=== PATIENT | male | born 1935 | race Caucasian/White ===

== ENCOUNTER 2023-11-19 13:41 | Inpatient (IN) | payer OTHER ==
[~2023-11-19 13:41] MED LIST: Iopamidol 300 61% 100 ML VIAL FS ONE
[2023-11-19] MEDS ORDERED: Ipratropium/Albuterol 3 ML NEB ONE (14:23)
[2023-11-19] MEDS ORDERED: methylPREDNISolone Sod Succ/PF 125 MG/2 ML VIAL ONE (14:29)
[2023-11-19 15:04] LABS: Hematocrit 37.8 % (38.8-50.0); MDiff Complete? YES; Mean Corpuscular HGB CONC 34.4 g/dL (32.0-36.0); Mean Corpuscular Hemoglobin 31.8 pg (27.0-33.0); Mean Corpuscular Volume 92.4 fl (81.2-95.1); Mean Platelet Volume 9.4 fl (7.4-10.4); Platelet Count 245 10x3/uL (150-450); RBC Distribution Width 12.9 % (11.5-14.5); Red Blood Cell (RBC) Count 4.09 10x6/uL (4.32-5.72)
[2023-11-19 15:11] LABS: ALT (SGPT) 8 U/L (8-55); AST (SGOT) 11 U/L (5-34); Albumin 3.3 g/dL (3.4-4.8); Alkaline Phosphatase 134 U/L (40-110); Anion Gap 16 mmol/L (10-20); BUN (Urea Nitrogen) 23 mg/dL (8.4-25.7); Bilirubin, Total 0.7 mg/dL (0.2-1.2); Calc. Creatinine Clearance 0 mL/min (70-130); Calcium 8.2 mg/dL (7.8-10.44); Carbon Dioxide 21 mmol/L (23-31); Chloride 100 mmol/L (98-107); Estimated GFR 33; Globulin 3.4 g/dL (2.4-3.5); Glucose 132 mg/dL (83-110); Potassium 4.3 mmol/L (3.5-5.1); Protein, Total 6.7 g/dL (5.8-8.1); Sodium 133 mmol/L (136-145)
[2023-11-19 15:15] LABS: Troponin I 0.093 ng/mL (< 0.028)
[2023-11-19 15:17] LABS: Analyzer IN Cardio CS ER; Base Excess -0.1 mEq/L (-2 - +2); Calcium, Ionized (venous) 1.11 mmol/L (1.16-1.32); Chloride (VBG) 98 mmol/L (98-106); Hematocrit-VBG 41 % (42.0-52.0); Hemoglobin (Hb) 13.9 g/dL (12.6-17.4); Potassium (VBG) 4.17 mmol/L (3.70-5.30); Puncture Site Other Site; RapidComm Collect By CBN; Sodium 134 mmol/L (133-146); pH (venous) 7.422 (7.32-7.43)
[2023-11-19 15:28] LABS: Neutrophil 88 % (42-75)
[2023-11-19 15:30] LABS: Band 4 % (5-11); Lymphocytes 3 % (21-51); Monocytes 5 % (0-10); Platelet Adequacy Comment Appears Adequate; RBC Morph Comment Within Normal Limits
[2023-11-19] MEDS ORDERED: Morphine 4 MG/ML VIAL ONE (18:13)
[2023-11-19] MEDS ORDERED: Cefepime 1 GM VIAL ONE (18:13)
[2023-11-19] MEDS ORDERED: Vancomycin 1 GM VIAL ONE (18:48)
[2023-11-19] MEDS ORDERED: metroNIDAZOLE 500 MG (100 mL) BAG ONE (19:58)
[2023-11-19] MEDS ORDERED: HYDROcodone/Acetaminophen 5/325 mg Tablet PO PRN (20:04)
[2023-11-19] MEDS ORDERED: Calcium Carbonate 500 MG ChewTAB PO PRN (20:04)
[2023-11-19] MEDS ORDERED: Guaifenesin DM 100-10/5 ML UDCUP PO PRN (20:04)
[2023-11-19] MEDS ORDERED: Ondansetron PF 4 MG/2 ML Vial IVP PRN (20:04)
[2023-11-19] MEDS ORDERED: Senokot S 8.6-50 MG TAB PO PRN (20:04)
[2023-11-19] MEDS ORDERED: Ipratropium/Albuterol 3 ML NEB NEB PRN (20:11)
[2023-11-19 21:09] LABS: INR-International Normal Ratio 1.2; Prothrombin Time 13.1 sec (9.5-12.1)
[2023-11-19 21:16] LABS: Troponin I 0.076 ng/mL (< 0.028)
[2023-11-20] MEDS ORDERED: Enoxaparin 80 MG (0.8 mL) SYRINGE ONE (00:24)
[2023-11-20] MEDS ORDERED: Atorvastatin Calcium 10 MG TAB ONE (00:27)
[2023-11-20] MEDS: Atorvastatin Calcium 10 MG TAB PO SCH (00:32)
[2023-11-20] MEDS: Sodium Chloride 0.9% 1,000 ML IV SCH (00:32)
[2023-11-20] MEDS: Enoxaparin 80 MG (0.8 mL) SYRINGE SC SCH ×2 (00:32→20:36)
[2023-11-20] MEDS: Terazosin HCl 5 MG CAP PO SCH (00:32)
[2023-11-20] MEDS: Morphine 2 MG/ML VIAL SLOW IVP PRN (00:35)
[2023-11-20] MEDS ORDERED: Morphine 2 MG/ML VIAL ONE ×2 (00:35→06:34)
[2023-11-20 04:34] LABS: #Monocytes 0.8 10x3/uL (0.0-1.1); #Neutrophils 22.5 10x3/uL (1.5-8.4); %Basophils 0.1 % (0.0-2.0); %Lymphocytes 3.2 % (18.0-47.0); %Monocytes 3.2 % (0.0-10.0); %Neutrophils 92.6 % (40.0-75.0); Hematocrit 31.9 % (38.8-50.0); Hemoglobin 10.6 g/dL (13.5-17.5); Mean Corpuscular HGB CONC 33.2 g/dL (32.0-36.0); Mean Corpuscular Hemoglobin 31.6 pg (27.0-33.0); Mean Corpuscular Volume 95.2 fl (81.2-95.1); Mean Platelet Volume 9.7 fl (7.4-10.4); Platelet Count 217 10x3/uL (150-450); RBC Distribution Width 12.8 % (11.5-14.5); Red Blood Cell (RBC) Count 3.35 10x6/uL (4.32-5.72); White Blood Cell (WBC) Count 24.3 10x3/uL (3.5-10.5)
[2023-11-20 04:47] LABS: Lactic Acid 1.2 mmol/L (0.5-2.2)
[2023-11-20 04:54] LABS: ALT (SGPT) 9 U/L (8-55); AST (SGOT) 10 U/L (5-34); Albumin 2.7 g/dL (3.4-4.8); Alkaline Phosphatase 96 U/L (40-110); Anion Gap 13 mmol/L (10-20); BUN (Urea Nitrogen) 25 mg/dL (8.4-25.7); Bilirubin, Total 0.4 mg/dL (0.2-1.2); CK (CPK) 99 U/L (30-200); Calc. Creatinine Clearance 0 mL/min (70-130); Carbon Dioxide 21 mmol/L (23-31); Chloride 105 mmol/L (98-107); Estimated GFR 38; Globulin 3.3 g/dL (2.4-3.5); Glucose 139 mg/dL (83-110); Sodium 135 mmol/L (136-145)
[2023-11-20 05:05] LABS: Calcium 8.1 mg/dL (7.8-10.44)
[2023-11-20 05:06] LABS: Troponin I 0.075 ng/mL (< 0.028)
[2023-11-20 05:12] LABS: CRP (Inflammatory) 31.67 mg/dL (= or < 0.5)
[2023-11-20 05:13] LABS: Free T4 (Free Thyroxine) 0.69 ng/dL (0.70-1.48); Thyroid Stimulating Hormone 3.8196 uIU/mL (0.35-4.94)
[2023-11-20 05:38] LABS: Bilirubin Neg (Negative); Blood, Urine 250 (Negative); Clarity Slightly Cloudy (Clear); Glucose, Urine (Dipstick) Normal (Negative); Ketone, Urine 5 mg/dL (Negative); Leukocyte 500 (Negative); Nitrite Positive (Negative); Protein, Urine (Dipstick) 100 mg/dl (Neg-Trace); Specific Gravity, Urine 1.015 (1.005-1.030); Urobilinogen Normal mg/dL (Less than 2)
[2023-11-20 06:02] LABS: Bacteria/HPF 3+ HPF (None Seen); CAUTI Indications for Culture Pelvic or flank pain; RBC/HPF 21-50 HPF (0-3); Squamous Epithelial 0-3 HPF (0-3); WBC/HPF Greater than 50 HPF (0-3)
[2023-11-20 06:03] LABS: Urine Culture Reflex Yes Yes
[2023-11-20] MEDS ORDERED: Meropenem 1 GM VIAL ONE (06:32)
[2023-11-20] MEDS: Levothyroxine Sodium 25 MCG TAB PO SCH (06:40)
[2023-11-20] MEDS: Meropenem 1 GM in Sodium Chloride 0.9% 100 ML IVPB SCH (06:40)
[2023-11-20 07:01] VITALS: BMI 26.9
[2023-11-20] MEDS ORDERED: Vancomycin Dose by Levels Sliding Scale (Wt 71-99) FS SCH (07:15)
[2023-11-20] MEDS ORDERED: Vancomycin 1 GM in Premix 1 BAG IVPB SCH (08:00)
[2023-11-20] MEDS: Mometasone/Formoterol 200/5 60 PUFF INH SCH (09:05)
[2023-11-20] MEDS ORDERED: Acetaminophen 650 MG Suppository PR PRN (09:39)
[2023-11-20] MEDS: Aspirin 81 mg Enteric Coated Tablet PO SCH (13:44)
[2023-11-20] MEDS: Pantoprazole 40 MG VIAL IVP SCH (13:45)
[2023-11-20] MEDS: Carvedilol 3.125 MG TAB PO SCH (13:46)
[2023-11-20] MEDS: methylPREDNISolone Sod Succ 40 MG VIAL IVP SCH (17:12)
[2023-11-20 18:17] LABS: Vancomycin, Random 4.9 ug/mL (See Comment)
[2023-11-20] MEDS: Meropenem 500 MG in Sodium Chloride 0.9% 100 ML IVPB SCH (19:37)
[2023-11-20] MEDS: Polyethylene Glycol 3350 17 GM Packet PO SCH (19:37)
[2023-11-20] MEDS: VANCOMYCIN 1.25 GM/250 ML BAG 1.25 GM in Premix 1 BAG IVPB SCH (20:37)
[2023-11-20 23:46] LABS: Bilirubin Neg (Negative); Blood, Urine 250 (Negative); Clarity Clear (Clear); Glucose, Urine (Dipstick) Normal (Negative); Ketone, Urine 5 mg/dL (Negative); Leukocyte 25 (Negative); Nitrite Negative (Negative); Protein, Urine (Dipstick) 100 mg/dl (Neg-Trace); Urobilinogen Normal mg/dL (Less than 2)
[2023-11-20 23:55] LABS: Legionella Urinary Ag Negative (Negative); Strep pneumo Urine Ag NEGATIVE (NEGATIVE)
[2023-11-21 00:18] LABS: Bacteria/HPF 1+ HPF (None Seen); Squamous Epithelial 0-3 HPF (0-3)
[2023-11-21 00:25] LABS: SARS-CoV-2 NAA Rapid Test Not Detected (NotDetected)
[2023-11-21] MEDS: Polyethylene Glycol 3350 17 GM Packet PO SCH (08:38)
[2023-11-21] MEDS: methylPREDNISolone Sod Succ 40 MG VIAL IVP SCH (08:38)
[2023-11-21 10:32] LABS: #Monocytes 0.3 10x3/uL (0.0-1.1); #Neutrophils 12.5 10x3/uL (1.5-8.4); %Basophils 0.1 % (0.0-2.0); %Lymphocytes 4.1 % (18.0-47.0); %Monocytes 2.3 % (0.0-10.0); %Neutrophils 92.9 % (40.0-75.0); Hemoglobin 10.3 g/dL (13.5-17.5); Mean Corpuscular HGB CONC 34.3 g/dL (32.0-36.0); Mean Corpuscular Hemoglobin 32.2 pg (27.0-33.0); Mean Corpuscular Volume 93.8 fl (81.2-95.1); Mean Platelet Volume 9.8 fl (7.4-10.4); Platelet Count 206 10x3/uL (150-450); RBC Distribution Width 12.8 % (11.5-14.5); White Blood Cell (WBC) Count 13.5 10x3/uL (3.5-10.5)
[2023-11-21 10:51] LABS: Anion Gap 12 mmol/L (10-20); BUN (Urea Nitrogen) 30 mg/dL (8.4-25.7); Calc. Creatinine Clearance 40 mL/min (70-130); Calcium 7.8 mg/dL (7.8-10.44); Carbon Dioxide 19 mmol/L (23-31); Chloride 108 mmol/L (98-107); Estimated GFR 48; Glucose 277 mg/dL (83-110); Potassium 3.6 mmol/L (3.5-5.1); Sodium 135 mmol/L (136-145)
[2023-11-21 17:07] LABS: Vancomycin, Random 13.2 ug/mL (See Comment)
[2023-11-21] MEDS: Meropenem 1 GM in Sodium Chloride 0.9% 100 ML IVPB SCH (18:04)
[2023-11-21] MEDS: Enoxaparin 80 MG (0.8 mL) SYRINGE SC SCH (21:16)
[2023-11-22 03:47] LABS: #Eosinphils 0.1 10x3/uL (0.0-0.5); #Monocytes 0.6 10x3/uL (0.0-1.1); #Neutrophils 10.2 10x3/uL (1.5-8.4); %Basophils 0.2 % (0.0-2.0); %Eosinophils 0.6 % (0.0-6.0); %Lymphocytes 10.2 % (18.0-47.0); %Monocytes 5.2 % (0.0-10.0); %Neutrophils 82.8 % (40.0-75.0); Hematocrit 29.7 % (38.8-50.0); Hemoglobin 9.9 g/dL (13.5-17.5); Mean Corpuscular HGB CONC 33.3 g/dL (32.0-36.0); Mean Corpuscular Hemoglobin 30.6 pg (27.0-33.0); Mean Corpuscular Volume 91.7 fl (81.2-95.1); Mean Platelet Volume 9.8 fl (7.4-10.4); Platelet Count 235 10x3/uL (150-450); RBC Distribution Width 12.8 % (11.5-14.5); Red Blood Cell (RBC) Count 3.24 10x6/uL (4.32-5.72); White Blood Cell (WBC) Count 12.3 10x3/uL (3.5-10.5)
[2023-11-22 04:21] LABS: Anion Gap 12 mmol/L (10-20); BUN (Urea Nitrogen) 31 mg/dL (8.4-25.7); Calc. Creatinine Clearance 39 mL/min (70-130); Calcium 7.6 mg/dL (7.8-10.44); Carbon Dioxide 19 mmol/L (23-31); Chloride 111 mmol/L (98-107); Estimated GFR 47; Glucose 114 mg/dL (83-110); Potassium 3.6 mmol/L (3.5-5.1); Sodium 138 mmol/L (136-145)
[2023-11-22] MEDS: Acetaminophen 325 MG TAB PO PRN (11:26)
[2023-11-23 03:53] LABS: #Eosinphils 0.3 10x3/uL (0.0-0.5); #Monocytes 0.6 10x3/uL (0.0-1.1); #Neutrophils 5.2 10x3/uL (1.5-8.4); %Basophils 0.4 % (0.0-2.0); %Eosinophils 4.1 % (0.0-6.0); %Lymphocytes 15.9 % (18.0-47.0); %Monocytes 7.5 % (0.0-10.0); Hematocrit 30.8 % (38.8-50.0); Hemoglobin 10.5 g/dL (13.5-17.5); Mean Corpuscular HGB CONC 34.1 g/dL (32.0-36.0); Mean Corpuscular Hemoglobin 31.3 pg (27.0-33.0); Mean Corpuscular Volume 91.9 fl (81.2-95.1); Mean Platelet Volume 9.8 fl (7.4-10.4); Platelet Count 230 10x3/uL (150-450); Red Blood Cell (RBC) Count 3.35 10x6/uL (4.32-5.72); White Blood Cell (WBC) Count 7.5 10x3/uL (3.5-10.5)
[2023-11-23 04:16] LABS: Anion Gap 11 mmol/L (10-20); BUN (Urea Nitrogen) 26 mg/dL (8.4-25.7); Calc. Creatinine Clearance 46 mL/min (70-130); Calcium 7.7 mg/dL (7.8-10.44); Carbon Dioxide 21 mmol/L (23-31); Chloride 110 mmol/L (98-107); Estimated GFR 57; Glucose 99 mg/dL (83-110); Potassium 3.7 mmol/L (3.5-5.1); Sodium 138 mmol/L (136-145)
[2023-11-23] MEDS: cefTRIAXone\\ROCEPHIN 1 GM in Sodium Chloride 0.9% 100 ML IVPB SCH (09:07)
[2023-11-23] MEDS: Doxycycline 100 MG in Sodium Chloride 0.9% 100 ML IVPB SCH (09:30)
[2023-11-24 03:05] LABS: #Basophils 0.1 10x3/uL (0.0-0.2); #Eosinphils 0.3 10x3/uL (0.0-0.5); #Monocytes 0.5 10x3/uL (0.0-1.1); #Neutrophils 5.7 10x3/uL (1.5-8.4); %Basophils 0.8 % (0.0-2.0); %Eosinophils 3.9 % (0.0-6.0); %Monocytes 6.3 % (0.0-10.0); %Neutrophils 67.1 % (40.0-75.0); Hematocrit 31.5 % (38.8-50.0); Hemoglobin 10.6 g/dL (13.5-17.5); Mean Corpuscular HGB CONC 33.7 g/dL (32.0-36.0); Mean Corpuscular Hemoglobin 31.2 pg (27.0-33.0); Mean Corpuscular Volume 92.6 fl (81.2-95.1); Mean Platelet Volume 9.9 fl (7.4-10.4); Platelet Count 236 10x3/uL (150-450); White Blood Cell (WBC) Count 8.5 10x3/uL (3.5-10.5)
[2023-11-24 03:51] LABS: Anion Gap 11 mmol/L (10-20); BUN (Urea Nitrogen) 27 mg/dL (8.4-25.7); Calc. Creatinine Clearance 42 mL/min (70-130); Calcium 7.8 mg/dL (7.8-10.44); Carbon Dioxide 20 mmol/L (23-31); Chloride 111 mmol/L (98-107); Estimated GFR 51; Glucose 112 mg/dL (83-110); Potassium 4.2 mmol/L (3.5-5.1); Sodium 138 mmol/L (136-145)
[2023-11-24 16:14] VITALS: BP 162/72; TEMP 97.7
[2023-11-25 11:15] LABS: QuantiFERON-TB Gold Plus Negative (Negative)
== END 2023-11-24 19:45 | DRG 871 ==
LOC: CSHERS 13:41 → EEVIPCON 13:41 → CSHERHOLD 20:36 → CSHTELE 11-20 11:20
PROVIDERS: ADMIT Student in an Organized Health Care Education/Training Program; ATTEND Internal Medicine
DX: A41.02 Sepsis due to Methicillin resistant Staphylococcus aureus (principal); J18.9 Pneumonia, unspecified organism; J96.01 Acute respiratory failure with hypoxia; N17.9 Acute kidney failure, unspecified; N12 Tubulo-interstitial nephritis, not specified as acute or chronic; J44.1 Chronic obstructive pulmonary disease with (acute) exacerbation; A41.81 Sepsis due to Enterococcus; M19.90 Unspecified osteoarthritis, unspecified site; E03.9 Hypothyroidism, unspecified; I48.0 Paroxysmal atrial fibrillation; R79.89 Other specified abnormal findings of blood chemistry; I71.40 Abdominal aortic aneurysm, without rupture, unspecified; E78.5 Hyperlipidemia, unspecified; N18.30 Chronic kidney disease, stage 3 unspecified; Z96.0 Presence of urogenital implants; Z87.891 Personal history of nicotine dependence; Z88.0 Allergy status to penicillin; Z11.52 Encounter for screening for COVID-19
CPT/HCPCS: 0241U; 36415; 71045; 71250; 74018; 74177; 76705; 78227; 80048; 80053; 80202; 81001; 82550; 82805; 83605; 83880; 84145; 84439; 84443; 84484; 85025; 85610; 85730; 86140; 86480; 87040; 87077; 87086; 87186; 87449; 87899; 93005; 93306; 94640; 94760; 94762; 96374; 96375; A9537; C9113; J0692; J0696; J1650; J2185; J2270; J2272; J2920; J2930; J3370; J3490; J7050; J7620; Q9967